=== PATIENT | male | born 1950 | race Caucasian/White ===

== ENCOUNTER 2023-05-05 07:48 | Outpatient (CLI) | payer MEDICARE ==
--- NOTE | 2023-05-05 10:14 | Ultrasound Report ---
PROCEDURE: Aorta Screening INDICATIONS: SCREENING FOR AAA TECHNIQUE: Real time scanning was performed of the aorta and iliac arteries, with image documentatio n. COMPARISON: None. FINDINGS: Aorta: Proximal aortic diameter measures 2.7 x 2.7 cm. Mid-aorta measures 2.5 x 2.5 cm. Distal aor tic diameter is 2.1 x 1.9 cm. Iliac arteries: Right common iliac artery measures 1.4 x 1.3 cm. Left common iliac artery measures 1.5 x 1.4 cm. IMPRESSION: No abdominal aortic aneurysm. Ectatic proximal portion at 2.5 to 2.7 cm. Consider 5 year follow-up. Recommended intervals for follow-up imaging of ectatic aortas and abdominal aortic aneurysms, per ACR consensus guidelines: 2.5-2.9 cm: 5 years 3.0-3.4 cm: 3 years 3.5-3.9 cm: 2 years 4.0-4.4 cm: 1 year 4.5-4.9 cm: 6 months + endovascular referral 5.0-5.5 cm: 3-6 months + endovascular referral Reviewed by: Sean Mcdonough MD on 05/05/2023 10:13 AM PST Approved by: Sean Mcdonough MD on 05/05/2023 10:13 AM PST Station ID: [id number]
== END 2023-05-05 07:49 | disposition home or self-care (01) ==
LOC: DI 07:48
PROVIDERS: ATTEND Registered Nurse
DX: Z13.6 Encounter for screening for cardiovascular disorders (principal); I77.811 Abdominal aortic ectasia

== ENCOUNTER 2023-11-26 08:00 | Outpatient (CLI) | payer MEDICARE ==
--- NOTE | 2023-11-26 21:25 | XRAY Report ---
PROCEDURE: Tib/Fib RT INDICATIONS: CONTUSION RIGHT LOWER LEG TECHNIQUE: 2 views of the tibia and fibula were acquired. COMPARISON: None. FINDINGS: Bones: No fractures or dislocations. No suspicious bony lesions. Soft tissues: No suspicious soft tissue calcifications or masses. IMPRESSION: No acute bony abnormality. Reviewed by: Dallas Castillo MD on 11/26/2023 8:24 PM [facility]DT Approved by: Dallas Castillo MD on 11/26/2023 8:24 PM AKDT Station ID: [id number]
== END 2023-11-26 23:59 | disposition home or self-care (01) ==
LOC: DI.S 08:00
PROVIDERS: ATTEND Registered Nurse
DX: S80.11XA Contusion of right lower leg, initial encounter (principal)